=== PATIENT | female | born 1960 | race Caucasian/White ===

== ENCOUNTER 2018-08-10 16:29 | Emergency (ER) | payer OTHER ==
[~2018-08-10] VITALS: Ht 167.6 cm; Wt 86.7 kg
[~2018-08-10 16:29] MED LIST: CEPH-368 PO; FERR325T18 PO; LEVO150T PO; LEVO150T5 PO; LISINOPRIL-HCTZ PO; METH750T2 PO; OMEP-110 PO; OXYC-302 PO; PANT40TA3 PO; SUCR1TAB PO; TRAM-47 PO
[2018-08-10 16:31] VITALS: BP 173/81
== END 2018-08-10 17:31 | disposition home or self-care (01) ==
LOC: ED 17:05
DX: S63.501A Unspecified sprain of right wrist, initial encounter (principal); S60.221A Contusion of right hand, initial encounter; F17.200 Nicotine dependence, unspecified, uncomplicated; I10 Essential (primary) hypertension; Y08.89XA Assault by other specified means, initial encounter; Y93.89 Activity, other specified; Y92.89 Other specified places as the place of occurrence of the external cause; Y99.8 Other external cause status
CPT/HCPCS: 29260; 99284

== ENCOUNTER → 2018-08-15 | Outpatient (CLI) | payer OTHER | END | disposition home or self-care (01) | LOC: CFH 12:15 | PROVIDERS: ATTEND Family Medicine | DX: Z12.31 Encounter for screening mammogram for malignant neoplasm of breast (principal) | CPT/HCPCS: 77067 ==

== ENCOUNTER 2019-10-13 14:53 | Inpatient (IN) | payer OTHER ==
[~2019-10-13] VITALS: Ht 165.1 cm; Wt 91.7 kg
--- NOTE | 2019-10-13 15:05 | NUR ---
TASK RN: PT TO ROOM AT THIS TIME.
--- NOTE | 2019-10-13 15:09 | NUR ---
59 Y/O FEMALE PRESENTS TO ED WITH C/O ABD PAIN. PER PATIENT "I'VE HAD ABDOMINAL PAIN FOR 2 MONTHS. I FOLLOWED UP WITH MY PCP AND MY GI DR LAST TUESDAY. I HAVEN'T HAD A BM IN 8 DAYS. I HAVEN'T BEEN TAKING A STOOL SOFTENER OR LAXATIVE EVERY DAY. MY STOMACH IS BLOATING. THEY TOLD ME I NEED A SCAN FOR MY GALL BLADDER." PT PLACED ON CONT PULSE OX,NIBP. BROTHER BEDSIDE. NO C/O N/V/D, TRAUMA, SYNCOPE, CP
--- NOTE | 2019-10-13 15:15 | NUR ---
TASK RN: EDMD BEDSIDE.
[2019-10-13] MEDS ORDERED: SODIUM CHLORIDE 0.9% 1,000 ML IV ONE ×2 (15:18→19:00)
--- NOTE | 2019-10-13 15:22 | NUR ---
REPORT RECEIVED BREAK RN.
[2019-10-13] MEDS ORDERED: SODIUM CHLORIDE FLUSH 10ML SYR IVF ONE (15:30)
[2019-10-13] MEDS ORDERED: ONDANSETRON 2MG/ML, 2ML IVPush ONE (15:30)
[2019-10-13] MEDS ORDERED: MORPHINE SULFATE 4 MG/ML, 1ML IVPush PRN ×2 (15:30→20:00)
[2019-10-13 15:43] LABS: BASOPHILS # (AUTO) 0.09 x10^3/uL (0-0.1); BASOPHILS % (AUTO) 1 % (0-1); EOSINOPHILS # (AUTO) 0.13 x10^3/uL (0-0.4); EOSINOPHILS % (AUTO) 2 % (1-7); LYMPHOCYTES # (AUTO) 0.72 x10^3/uL (1-3.4); LYMPHOCYTES % (AUTO) 9 % (22-44); MD NO; MEAN CORPUSCULAR HEMOGLOBIN 25.8 pg (27.0-34.8); MEAN CORPUSCULAR HGB CONC 31.5 g/dL (32.4-35.8); MEAN CORPUSCULAR VOLUME 81.9 fL (80-100); MEAN PLATELET VOLUME 9.8 fL (7.4-10.4); MONOCYTES # (AUTO) 0.56 x10^3/uL (0.2-0.8); MONOCYTES % (AUTO) 7 % (2-9); NEUTROPHILS # (AUTO) 6.27 x10^3/uL (1.8-6.8); NEUTROPHILS % (AUTO) 81 % (42-75); PLATELET COUNT 412 x10^3/uL (130-400); RED BLOOD COUNT 4.52 x10^6/uL (3.82-5.3); RED CELL DISTRIBUTION WIDTH 15.4 % (9.6-15.2)
[2019-10-13 15:50] LABS: ALBUMIN 3.5 g/dL (3.4-5.0); ANION GAP 10 mmol/L (5-15); CALCIUM 9.1 mg/dL (8.5-10.1); CHLORIDE 103 mmol/L (98-107)
[2019-10-13 15:56] LABS: ALANINE AMINOTRANSFERASE 187 U/L (12-78); ALKALINE PHOSPHATASE 270 U/L (45-117); BILIRUBIN,TOTAL 1.1 mg/dL (0.2-1.0); CREATININE 0.96 mg/dL (0.55-1.02); TOTAL PROTEIN 7.7 g/dL (6.4-8.2)
--- NOTE | 2019-10-13 16:59 | NUR ---
PT TO AND FROM CTA.
--- NOTE | 2019-10-13 17:00 | NUR ---
PT STS PAIN IS GONE AND DID NOT WANT MS/ZOFRAN.
--- NOTE | 2019-10-13 17:29 | NUR ---
PLAN FOR XR, PT UPDATED. PT DECLINED PAIN MEDS, 5/10 PAIN.
--- NOTE | 2019-10-13 17:30 | NUR ---
PLAN FOR US.
[2019-10-13] MEDS ORDERED: ONDANSETRON 2MG/ML, 2ML ONE ×2 (18:30→19:20)
[2019-10-13] MEDS ORDERED: MORPHINE SULFATE 4 MG/ML, 1ML ONE (18:30)
--- NOTE | 2019-10-13 18:42 | NUR ---
MEDS PER MAR FOR PAIN AFTER US. AWAIITNG RESULTS. CALL RIVERA IN REACH VSS.
[2019-10-13] MEDS ORDERED: CEFOTETAN PMX 1GM/50ML 50 ML IV ONE (19:00)
[2019-10-13] MEDS ORDERED: FENTANYL PF 250 MCG/5ML ONE ×2 (19:16→20:50)
[2019-10-13] MEDS ORDERED: MIDAZOLAM 1 MG/ML, 2ML ONE (19:16)
[2019-10-13] MEDS ORDERED: CEFOTETAN PMX 2GM/50ML 50 ML ONE (19:18)
[2019-10-13] MEDS ORDERED: PROPOFOL 10 MG/ML, 20ML ONE (19:20)
[2019-10-13] MEDS ORDERED: NEOSTIGMINE 1 MG/ML, 10ML ONE ×2 (19:20→20:08)
[2019-10-13] MEDS ORDERED: ROCURONIUM 10MG/ML,5ML ONE (19:20)
[2019-10-13] MEDS ORDERED: GLYCOPYRROLATE 0.2MG/1ML, 5ML ONE (19:20)
[2019-10-13] MEDS ORDERED: DEXAMETHASONE 4 MG/ML, 1ML ONE (19:20)
[2019-10-13 19:37] LABS: INTERNATIONAL NORMALIZED RATIO 0.91 (0.93-1.1); PROTHROMBIN TIME 9.6 Seconds (9.6-11.5)
[2019-10-13] MEDS ORDERED: BUPIVACAINE/PF 0.5% ONE (19:39)
[2019-10-13] MEDS ORDERED: hydrALAzine 20 MG/ML, 1ML IV PRN ×2 (20:00→23:30)
[2019-10-13] MEDS ORDERED: OXYcodone 5 MG/5 ML ORAL.SOL UDC PO PRN (20:00)
[2019-10-13] MEDS ORDERED: MEPERIDINE/PF 25MG/ML,1ML IVPush PRN (20:00)
[2019-10-13] MEDS ORDERED: HALOPERIDOL 5 MG/ML IV PRN (20:00)
[2019-10-13] MEDS ORDERED: HYDROmorphone 2 MG/ML, 1ML IVPush PRN (20:00)
[2019-10-13] MEDS ORDERED: PROMETHAZINE 25 MG/ML, 1ML IV PRN (20:00)
[2019-10-13] MEDS ORDERED: LABETALOL 5MG/ML, 20ML IV PRN (20:00)
[2019-10-13] MEDS ORDERED: PHENYLEPHRINE 10 MG/ML ONE (20:08)
[2019-10-13] MEDS ORDERED: THROMBIN 5,000 UNIT VIAL TP ONE (21:10)
[2019-10-13] MEDS ORDERED: SUGAMMADEX 200 MG/2 ML IVPush ONE (21:37)
[2019-10-13] MEDS ORDERED: FENTANYL PF 100 MCG/2ML ONE (22:05)
[2019-10-13] MEDS ORDERED: OXYcodone 5 MG/5 ML ORAL.SOL UDC ONE (22:05)
[2019-10-13] MEDS: FENTANYL PF 100 MCG/2ML IV PRN ×3 (22:06→22:21)
[2019-10-13 23:00] VITALS: BP 116/75
[2019-10-13] MEDS: HYDROmorphone 2 MG/ML, 1ML IVPush PRN (23:28)
[2019-10-13] MEDS ORDERED: ACETAMINOPHEN 325 MG TABLET PO PRN (23:30)
[2019-10-13] MEDS ORDERED: ACETAMINOPHEN 650 MG SUPP PR PRN (23:30)
[2019-10-13] MEDS ORDERED: ENALAPRILAT 1.25 MG/ML, 2ML IV PRN (23:30)
[2019-10-13] MEDS ORDERED: DIPHENHYDRAMINE 50 MG/ML, 1ML IV PRN (23:30)
[2019-10-13] MEDS: LABETALOL 5MG/ML, 20ML IVPush SCH (23:30)
[2019-10-13] MEDS ORDERED: ONDANSETRON 2MG/ML, 2ML IV PRN (23:30)
[2019-10-14] VITALS (7 sets, daily range): BP systolic 87–116; BP diastolic 53–75
[2019-10-14] MEDS: OXYcodone/APAP 5/325MG TABLET PO PRN ×5 (02:27→20:11)
[2019-10-14] MEDS: HYDROmorphone 2 MG/ML, 1ML IVPush PRN ×3 (04:48→21:17)
[2019-10-14 04:58] LABS: MEAN CORPUSCULAR HEMOGLOBIN 25.9 pg (27.0-34.8); MEAN CORPUSCULAR HGB CONC 31.6 g/dL (32.4-35.8); MEAN CORPUSCULAR VOLUME 81.9 fL (80-100); MEAN PLATELET VOLUME 10.3 fL (7.4-10.4); PLATELET COUNT 405 x10^3/uL (130-400); RED BLOOD COUNT 4.11 x10^6/uL (3.82-5.3); RED CELL DISTRIBUTION WIDTH 15.5 % (9.6-15.2)
[2019-10-14] MEDS: OMEPRAZOLE 20 MG CAPSULE.DR PO SCH (05:00)
[2019-10-14] MEDS: LEVOTHYROXINE 150 MCG TABLET PO SCH (05:00)
[2019-10-14] MEDS: D5%-0.45NACL+KCL 20MEQ 1,000 ML IV SCH ×2 (05:00→21:17)
[2019-10-14 05:04] LABS: ALANINE AMINOTRANSFERASE 260 U/L (12-78); ALBUMIN 2.9 g/dL (3.4-5.0); ANION GAP 7 mmol/L (5-15); CHLORIDE 107 mmol/L (98-107)
[2019-10-14 05:06] LABS: ALKALINE PHOSPHATASE 269 U/L (45-117); BILIRUBIN,TOTAL 0.7 mg/dL (0.2-1.0); CREATININE 1.11 mg/dL (0.55-1.02); TOTAL PROTEIN 6.7 g/dL (6.4-8.2)
[2019-10-14 05:49] LABS: BASOPHILS % (AUTO) 0 % (0-1); EOSINOPHILS # (AUTO) 0.17 x10^3/uL (0-0.4); EOSINOPHILS % (AUTO) 1 % (1-7); LYMPHOCYTES # (AUTO) 0.27 x10^3/uL (1-3.4); LYMPHOCYTES % (AUTO) 2 % (22-44); MD SCAN; MONOCYTES # (AUTO) 1.03 x10^3/uL (0.2-0.8); MONOCYTES % (AUTO) 6 % (2-9); NEUTROPHILS # (AUTO) 15.85 x10^3/uL (1.8-6.8); NEUTROPHILS % (AUTO) 92 % (42-75)
[2019-10-14] MEDS: LABETALOL 5MG/ML, 20ML IVPush SCH ×3 (07:30→23:30)
[2019-10-14] MEDS: SUCRALFATE 1 GM TABLET PO SCH (08:33)
[2019-10-14] MEDS: ENOXAPARIN 40 MG/0.4 ML SQ SCH (12:16)
[2019-10-15] MEDS: OXYcodone/APAP 5/325MG TABLET PO PRN ×4 (00:46→17:25)
[2019-10-15] MEDS: LORazepam 1MG TABLET PO PRN (01:55)
[2019-10-15 01:58] VITALS: BP 97/52
[2019-10-15] MEDS: OMEPRAZOLE 20 MG CAPSULE.DR PO SCH (06:24)
[2019-10-15] MEDS: LEVOTHYROXINE 150 MCG TABLET PO SCH (06:24)
[2019-10-15 06:35] LABS: BASOPHILS # (AUTO) 0.13 x10^3/uL (0-0.1); BASOPHILS % (AUTO) 1 % (0-1); EOSINOPHILS # (AUTO) 0.05 x10^3/uL (0-0.4); EOSINOPHILS % (AUTO) 0 % (1-7); LYMPHOCYTES # (AUTO) 0.55 x10^3/uL (1-3.4); LYMPHOCYTES % (AUTO) 5 % (22-44); MD NO; MEAN CORPUSCULAR HGB CONC 31.5 g/dL (32.4-35.8); MEAN CORPUSCULAR VOLUME 82.6 fL (80-100); MEAN PLATELET VOLUME 10.6 fL (7.4-10.4); MONOCYTES # (AUTO) 1.27 x10^3/uL (0.2-0.8); MONOCYTES % (AUTO) 10 % (2-9); NEUTROPHILS # (AUTO) 10.21 x10^3/uL (1.8-6.8); NEUTROPHILS % (AUTO) 84 % (42-75); PLATELET COUNT 349 x10^3/uL (130-400); RED BLOOD COUNT 3.66 x10^6/uL (3.82-5.3); RED CELL DISTRIBUTION WIDTH 15.6 % (9.6-15.2)
[2019-10-15 06:44] LABS: ALANINE AMINOTRANSFERASE 165 U/L (12-78); ALBUMIN 2.8 g/dL (3.4-5.0); ANION GAP 7 mmol/L (5-15); CALCIUM 8.6 mg/dL (8.5-10.1); CHLORIDE 103 mmol/L (98-107); CREATININE 0.93 mg/dL (0.55-1.02)
[2019-10-15 06:47] LABS: ALKALINE PHOSPHATASE 197 U/L (45-117); BILIRUBIN,TOTAL 0.5 mg/dL (0.2-1.0); TOTAL PROTEIN 6.8 g/dL (6.4-8.2)
[2019-10-15 07:20] VITALS: BP 84/53
[2019-10-15 07:31] VITALS: BP 97/50
[2019-10-15] MEDS: LABETALOL 5MG/ML, 20ML IVPush SCH ×3 (07:38→23:30)
[2019-10-15] MEDS: SUCRALFATE 1 GM TABLET PO SCH (07:38)
[2019-10-15] MEDS: D5%-0.45NACL+KCL 20MEQ 1,000 ML IV SCH ×2 (07:45→19:46)
[2019-10-15] MEDS ORDERED: HOLD MEDICATION MC PRN (09:00)
[2019-10-15 13:11] VITALS: BP 89/56
[2019-10-15 16:12] VITALS: BP 95/55
[2019-10-15] MEDS: HYDROmorphone 2 MG/ML, 1ML IVPush PRN (18:40)
[2019-10-15 20:09] VITALS: BP 94/56
[2019-10-16] MEDS: HYDROmorphone 2 MG/ML, 1ML IVPush PRN ×2 (00:33→19:31)
[2019-10-16] MEDS: LORazepam 1MG TABLET PO PRN ×2 (00:40→08:40)
[2019-10-16 02:00] VITALS: BP 98/53
[2019-10-16] MEDS: OXYcodone/APAP 5/325MG TABLET PO PRN ×3 (04:23→16:11)
[2019-10-16] MEDS: LEVOTHYROXINE 150 MCG TABLET PO SCH (06:04)
[2019-10-16] MEDS: OMEPRAZOLE 20 MG CAPSULE.DR PO SCH (06:04)
[2019-10-16] MEDS: D5%-0.45NACL+KCL 20MEQ 1,000 ML IV SCH ×2 (07:20→17:33)
[2019-10-16] MEDS: LABETALOL 5MG/ML, 20ML IVPush SCH ×3 (07:30→23:30)
[2019-10-16 07:34] VITALS: BP 109/69
[2019-10-16] MEDS: SUCRALFATE 1 GM TABLET PO SCH (08:40)
[2019-10-16 08:56] LABS: BASOPHILS # (AUTO) 0.15 x10^3/uL (0-0.1); BASOPHILS % (AUTO) 1 % (0-1); EOSINOPHILS # (AUTO) 0.09 x10^3/uL (0-0.4); EOSINOPHILS % (AUTO) 1 % (1-7); LYMPHOCYTES # (AUTO) 0.78 x10^3/uL (1-3.4); LYMPHOCYTES % (AUTO) 6 % (22-44); MD NO; MEAN CORPUSCULAR HEMOGLOBIN 26.2 pg (27.0-34.8); MEAN CORPUSCULAR HGB CONC 31.9 g/dL (32.4-35.8); MONOCYTES # (AUTO) 0.96 x10^3/uL (0.2-0.8); MONOCYTES % (AUTO) 8 % (2-9); NEUTROPHILS # (AUTO) 10.83 x10^3/uL (1.8-6.8); NEUTROPHILS % (AUTO) 85 % (42-75); PLATELET COUNT 344 x10^3/uL (130-400); RED BLOOD COUNT 3.42 x10^6/uL (3.82-5.3)
[2019-10-16 09:06] LABS: ALANINE AMINOTRANSFERASE 96 U/L (12-78); ALBUMIN 2.5 g/dL (3.4-5.0); ANION GAP 7 mmol/L (5-15); CALCIUM 8.2 mg/dL (8.5-10.1); CHLORIDE 104 mmol/L (98-107); CREATININE 0.72 mg/dL (0.55-1.02)
[2019-10-16 09:08] LABS: ALKALINE PHOSPHATASE 162 U/L (45-117); BILIRUBIN,TOTAL 0.4 mg/dL (0.2-1.0); TOTAL PROTEIN 6.4 g/dL (6.4-8.2)
[2019-10-16] MEDS: ENOXAPARIN 40 MG/0.4 ML SQ SCH (12:23)
[2019-10-16 13:28] VITALS: BP 88/54
[2019-10-16] MEDS: DIPHENHYDRAMINE 25 MG CAPSULE PO PRN (16:11)
[2019-10-16 16:16] VITALS: BP 124/54
[2019-10-16 20:09] VITALS: BP 91/60
[2019-10-17] MEDS: OXYcodone/APAP 5/325MG TABLET PO PRN ×3 (01:45→12:40)
[2019-10-17 01:52] VITALS: BP 115/73
[2019-10-17] MEDS: D5%-0.45NACL+KCL 20MEQ 1,000 ML IV SCH ×2 (02:45→14:01)
[2019-10-17 05:45] LABS: BASOPHILS # (AUTO) 0.03 x10^3/uL (0-0.1); BASOPHILS % (AUTO) 0 % (0-1); EOSINOPHILS # (AUTO) 0.23 x10^3/uL (0-0.4); EOSINOPHILS % (AUTO) 2 % (1-7); LYMPHOCYTES # (AUTO) 0.79 x10^3/uL (1-3.4); LYMPHOCYTES % (AUTO) 7 % (22-44); MD NO; MEAN CORPUSCULAR HEMOGLOBIN 26.1 pg (27.0-34.8); MEAN CORPUSCULAR VOLUME 81.5 fL (80-100); MONOCYTES # (AUTO) 1.08 x10^3/uL (0.2-0.8); MONOCYTES % (AUTO) 10 % (2-9); NEUTROPHILS # (AUTO) 9.18 x10^3/uL (1.8-6.8); NEUTROPHILS % (AUTO) 81 % (42-75); PLATELET COUNT 343 x10^3/uL (130-400); RED BLOOD COUNT 3.03 x10^6/uL (3.82-5.3); RED CELL DISTRIBUTION WIDTH 15.6 % (9.6-15.2)
[2019-10-17 06:05] LABS: ALBUMIN 2.1 g/dL (3.4-5.0); ANION GAP 6 mmol/L (5-15); CALCIUM 7.8 mg/dL (8.5-10.1); CHLORIDE 105 mmol/L (98-107)
[2019-10-17 06:08] LABS: ALANINE AMINOTRANSFERASE 68 U/L (12-78); ALKALINE PHOSPHATASE 137 U/L (45-117); BILIRUBIN,TOTAL 0.3 mg/dL (0.2-1.0); TOTAL PROTEIN 5.7 g/dL (6.4-8.2)
[2019-10-17] MEDS: LEVOTHYROXINE 150 MCG TABLET PO SCH (06:35)
[2019-10-17] MEDS: OMEPRAZOLE 20 MG CAPSULE.DR PO SCH (06:35)
[2019-10-17 07:27] VITALS: BP 100/61
[2019-10-17] MEDS: SUCRALFATE 1 GM TABLET PO SCH (08:50)
[2019-10-17] MEDS: LABETALOL 5MG/ML, 20ML IVPush SCH ×3 (08:50→23:10)
[2019-10-17] MEDS ORDERED: OMNIPAQUE 350 MG/ML, 100ML BOTTLE ONE (10:29)
[2019-10-17] MEDS: ENOXAPARIN 40 MG/0.4 ML SQ SCH (12:00)
[2019-10-17 12:08] VITALS: BP 95/61
[2019-10-17] MEDS: LORazepam 2 MG/ML, 1ML IV PRN (14:01)
[2019-10-17 14:04] LABS: BASOPHILS % (AUTO) 0 % (0-1); EOSINOPHILS # (AUTO) 0.29 x10^3/uL (0-0.4); EOSINOPHILS % (AUTO) 2 % (1-7); LYMPHOCYTES # (AUTO) 0.88 x10^3/uL (1-3.4); LYMPHOCYTES % (AUTO) 7 % (22-44); MD NO; MEAN CORPUSCULAR HEMOGLOBIN 26.1 pg (27.0-34.8); MEAN CORPUSCULAR HGB CONC 32.2 g/dL (32.4-35.8); MEAN CORPUSCULAR VOLUME 81.2 fL (80-100); MEAN PLATELET VOLUME 10.1 fL (7.4-10.4); MONOCYTES # (AUTO) 1.23 x10^3/uL (0.2-0.8); MONOCYTES % (AUTO) 9 % (2-9); NEUTROPHILS # (AUTO) 11.08 x10^3/uL (1.8-6.8); NEUTROPHILS % (AUTO) 82 % (42-75); PLATELET COUNT 415 x10^3/uL (130-400); RED BLOOD COUNT 3.43 x10^6/uL (3.82-5.3); RED CELL DISTRIBUTION WIDTH 15.9 % (9.6-15.2)
[2019-10-17] MEDS: HYDROmorphone 2 MG/ML, 1ML IVPush PRN ×2 (16:21→22:25)
[2019-10-17 17:15] VITALS: BP 113/69
[2019-10-17 20:21] VITALS: BP 111/69
[2019-10-18] MEDS: D5%-0.45NACL+KCL 20MEQ 1,000 ML IV SCH ×2 (00:08→13:40)
[2019-10-18] MEDS: LORazepam 1MG TABLET PO PRN ×2 (00:08→20:55)
[2019-10-18] MEDS: LORazepam 2 MG/ML, 1ML IV PRN (00:10)
[2019-10-18 01:16] VITALS: BP 108/74
[2019-10-18] MEDS: LEVOTHYROXINE 150 MCG TABLET PO SCH (05:12)
[2019-10-18] MEDS: OMEPRAZOLE 20 MG CAPSULE.DR PO SCH (05:12)
[2019-10-18 06:02] LABS: BASOPHILS # (AUTO) 0.01 x10^3/uL (0-0.1); BASOPHILS % (AUTO) 0 % (0-1); EOSINOPHILS # (AUTO) 0.18 x10^3/uL (0-0.4); EOSINOPHILS % (AUTO) 2 % (1-7); LYMPHOCYTES # (AUTO) 0.82 x10^3/uL (1-3.4); LYMPHOCYTES % (AUTO) 7 % (22-44); MD NO; MEAN CORPUSCULAR HEMOGLOBIN 25.8 pg (27.0-34.8); MEAN CORPUSCULAR HGB CONC 31.8 g/dL (32.4-35.8); MEAN CORPUSCULAR VOLUME 81.3 fL (80-100); MEAN PLATELET VOLUME 9.8 fL (7.4-10.4); MONOCYTES # (AUTO) 1.32 x10^3/uL (0.2-0.8); MONOCYTES % (AUTO) 12 % (2-9); NEUTROPHILS # (AUTO) 8.95 x10^3/uL (1.8-6.8); NEUTROPHILS % (AUTO) 79 % (42-75); PLATELET COUNT 412 x10^3/uL (130-400); RED BLOOD COUNT 3.11 x10^6/uL (3.82-5.3)
[2019-10-18 06:11] LABS: ALANINE AMINOTRANSFERASE 53 U/L (12-78); ALBUMIN 2.1 g/dL (3.4-5.0); ANION GAP 7 mmol/L (5-15); CALCIUM 8.3 mg/dL (8.5-10.1); CHLORIDE 104 mmol/L (98-107); CREATININE 0.55 mg/dL (0.55-1.02)
[2019-10-18 06:13] LABS: ALKALINE PHOSPHATASE 136 U/L (45-117); BILIRUBIN,TOTAL 0.8 mg/dL (0.2-1.0); TOTAL PROTEIN 6.1 g/dL (6.4-8.2)
[2019-10-18 07:45] VITALS: BP 103/56
[2019-10-18] MEDS: LABETALOL 5MG/ML, 20ML IVPush SCH ×3 (08:56→23:30)
[2019-10-18] MEDS: OXYcodone/APAP 5/325MG TABLET PO PRN ×3 (08:56→22:00)
[2019-10-18] MEDS: SUCRALFATE 1 GM TABLET PO SCH (08:56)
[2019-10-18] MEDS ORDERED: METHYLNALTREXONE 12 MG/0.6 ML SYR SQ ONE (11:00)
[2019-10-18 11:36] LABS: FREE T4 (FREE THYROXINE) 1.37 ng/dL (0.76-1.46)
[2019-10-18] MEDS: ENOXAPARIN 40 MG/0.4 ML SQ SCH (12:00)
[2019-10-18] MEDS: HYDROmorphone 2 MG/ML, 1ML IVPush PRN (13:39)
[2019-10-18] MEDS ORDERED: HOLD MEDICATION MC PRN (14:30)
[2019-10-18 15:23] VITALS: BP 98/59
[2019-10-18 20:36] VITALS: BP 95/58
[2019-10-19 01:55] VITALS: BP 92/57
[2019-10-19] MEDS: LEVOTHYROXINE 150 MCG TABLET PO SCH (05:32)
[2019-10-19] MEDS: OXYcodone/APAP 5/325MG TABLET PO PRN ×4 (05:32→22:53)
[2019-10-19] MEDS: OMEPRAZOLE 20 MG CAPSULE.DR PO SCH (05:32)
[2019-10-19 05:48] LABS: ALANINE AMINOTRANSFERASE 44 U/L (12-78); ALBUMIN 1.9 g/dL (3.4-5.0); ANION GAP 5 mmol/L (5-15); CALCIUM 8.5 mg/dL (8.5-10.1); CHLORIDE 107 mmol/L (98-107); CREATININE 0.55 mg/dL (0.55-1.02)
[2019-10-19 05:50] LABS: ALKALINE PHOSPHATASE 130 U/L (45-117); BILIRUBIN,TOTAL 0.8 mg/dL (0.2-1.0); TOTAL PROTEIN 6.2 g/dL (6.4-8.2)
[2019-10-19 06:10] LABS: MEAN CORPUSCULAR HEMOGLOBIN 25.3 pg (27.0-34.8); MEAN CORPUSCULAR HGB CONC 31.1 g/dL (32.4-35.8); MEAN CORPUSCULAR VOLUME 81.2 fL (80-100); MEAN PLATELET VOLUME 9.6 fL (7.4-10.4); PLATELET COUNT 417 x10^3/uL (130-400); RED BLOOD COUNT 3.18 x10^6/uL (3.82-5.3); RED CELL DISTRIBUTION WIDTH 16.1 % (9.6-15.2)
[2019-10-19 06:13] LABS: BASOPHILS # (AUTO) 0.01 x10^3/uL (0-0.1); BASOPHILS % (AUTO) 0 % (0-1); EOSINOPHILS % (AUTO) 3 % (1-7); LYMPHOCYTES # (AUTO) 0.88 x10^3/uL (1-3.4); LYMPHOCYTES % (AUTO) 8 % (22-44); MD MORPH REVIEW ONLY; MONOCYTES # (AUTO) 0.85 x10^3/uL (0.2-0.8); MONOCYTES % (AUTO) 8 % (2-9); NEUTROPHILS # (AUTO) 8.44 x10^3/uL (1.8-6.8); NEUTROPHILS % (AUTO) 81 % (42-75)
[2019-10-19 06:14] LABS: <PLATELET ESTIMATE> INCREASED; ANISOCYTOSIS 1+; GIANT PLATELETS 1+; HYPOCHROMIA 1+; LARGE PLATELETS 1+; MICROCYTOSIS 1+
[2019-10-19] MEDS: LABETALOL 5MG/ML, 20ML IVPush SCH ×3 (07:30→23:30)
[2019-10-19] MEDS: SUCRALFATE 1 GM TABLET PO SCH (08:24)
[2019-10-19 08:25] VITALS: BP 95/62
[2019-10-19] MEDS ORDERED: ALBUTEROL/IPRATROPIUM 2.5MG/0.5MG, 3 ML HHN SCH (10:30)
[2019-10-19 12:23] VITALS: BP 105/68
[2019-10-19] MEDS: HYDROmorphone 2 MG/ML, 1ML IVPush PRN ×2 (12:58→13:15)
[2019-10-19] MEDS: ENOXAPARIN 40 MG/0.4 ML SQ SCH (13:00)
[2019-10-19] MEDS: SENNA/DOCUSATE TABLET PO SCH (15:16)
[2019-10-19] MEDS: LACTULOSE 20 GM/30 ML UDC PO SCH ×2 (15:16→20:58)
[2019-10-19 20:42] VITALS: BP 105/64
[2019-10-19] MEDS: LORazepam 1MG TABLET PO PRN (20:58)
[2019-10-19] MEDS: D5%-0.45NACL+KCL 20MEQ 1,000 ML IV SCH (23:21)
[2019-10-19] MEDS: DIPHENHYDRAMINE 25 MG CAPSULE PO PRN (23:29)
[2019-10-19 23:32] VITALS: BP 121/72
[2019-10-20 03:05] VITALS: BP 99/62
[2019-10-20] MEDS: OMEPRAZOLE 20 MG CAPSULE.DR PO SCH (06:09)
[2019-10-20] MEDS: OXYcodone/APAP 5/325MG TABLET PO PRN ×4 (06:09→23:57)
[2019-10-20] MEDS: LEVOTHYROXINE 150 MCG TABLET PO SCH (06:10)
[2019-10-20] MEDS: LABETALOL 5MG/ML, 20ML IVPush SCH ×3 (07:30→22:38)
[2019-10-20] MEDS: SENNA/DOCUSATE TABLET PO SCH (08:31)
[2019-10-20] MEDS: SUCRALFATE 1 GM TABLET PO SCH (08:31)
[2019-10-20] MEDS: LACTULOSE 20 GM/30 ML UDC PO SCH ×2 (08:31→21:00)
[2019-10-20 08:43] VITALS: BP 108/71
[2019-10-20 08:49] LABS: BASOPHILS # (AUTO) 0.05 x10^3/uL (0-0.1); BASOPHILS % (AUTO) 1 % (0-1); EOSINOPHILS % (AUTO) 2 % (1-7); LYMPHOCYTES # (AUTO) 0.64 x10^3/uL (1-3.4); LYMPHOCYTES % (AUTO) 6 % (22-44); MD NO; MEAN CORPUSCULAR HEMOGLOBIN 25.4 pg (27.0-34.8); MEAN CORPUSCULAR HGB CONC 31.6 g/dL (32.4-35.8); MEAN CORPUSCULAR VOLUME 80.4 fL (80-100); MEAN PLATELET VOLUME 9.1 fL (7.4-10.4); MONOCYTES # (AUTO) 1.22 x10^3/uL (0.2-0.8); MONOCYTES % (AUTO) 11 % (2-9); NEUTROPHILS # (AUTO) 9.43 x10^3/uL (1.8-6.8); NEUTROPHILS % (AUTO) 82 % (42-75); PLATELET COUNT 573 x10^3/uL (130-400); RED BLOOD COUNT 3.15 x10^6/uL (3.82-5.3); RED CELL DISTRIBUTION WIDTH 16.3 % (9.6-15.2)
[2019-10-20 08:58] LABS: ANION GAP 7 mmol/L (5-15); CALCIUM 8.1 mg/dL (8.5-10.1); CHLORIDE 105 mmol/L (98-107); CREATININE 0.61 mg/dL (0.55-1.02)
[2019-10-20] MEDS: CEFTRIAXONE PMX 1GM/50ML 50 ML IV SCH (09:23)
[2019-10-20] MEDS: METRONIDAZOLE PMX 500MG/100ML 100 ML IV SCH ×2 (10:12→17:48)
[2019-10-20] MEDS: ENOXAPARIN 40 MG/0.4 ML SQ SCH (12:46)
[2019-10-20] MEDS: LORazepam 1MG TABLET PO PRN ×2 (12:48→21:13)
[2019-10-20 13:01] VITALS: BP 104/66
[2019-10-20 18:33] VITALS: BP 106/54
[2019-10-20] MEDS: D5%-0.45NACL+KCL 20MEQ 1,000 ML IV SCH (21:30)
[2019-10-21 01:27] VITALS: BP 115/68
[2019-10-21] MEDS: METRONIDAZOLE PMX 500MG/100ML 100 ML IV SCH ×3 (01:28→18:11)
[2019-10-21] MEDS: OMEPRAZOLE 20 MG CAPSULE.DR PO SCH (05:23)
[2019-10-21] MEDS: LEVOTHYROXINE 150 MCG TABLET PO SCH (05:23)
[2019-10-21] MEDS: LABETALOL 5MG/ML, 20ML IVPush SCH ×3 (07:30→23:30)
[2019-10-21 07:36] VITALS: BP 106/66
[2019-10-21] MEDS: LACTULOSE 20 GM/30 ML UDC PO SCH ×2 (09:00→20:27)
[2019-10-21] MEDS: SENNA/DOCUSATE TABLET PO SCH (09:00)
[2019-10-21] MEDS: CEFTRIAXONE PMX 1GM/50ML 50 ML IV SCH (09:11)
[2019-10-21] MEDS: SUCRALFATE 1 GM TABLET PO SCH (09:11)
[2019-10-21] MEDS: OXYcodone/APAP 5/325MG TABLET PO PRN ×2 (09:19→17:29)
[2019-10-21 10:32] LABS: MEAN CORPUSCULAR HEMOGLOBIN 25.9 pg (27.0-34.8); MEAN CORPUSCULAR HGB CONC 32.5 g/dL (32.4-35.8); MEAN CORPUSCULAR VOLUME 79.6 fL (80-100); MEAN PLATELET VOLUME 8.5 fL (7.4-10.4); PLATELET COUNT 672 x10^3/uL (130-400); RED BLOOD COUNT 3.17 x10^6/uL (3.82-5.3); RED CELL DISTRIBUTION WIDTH 16.5 % (9.6-15.2)
[2019-10-21 10:45] LABS: ALANINE AMINOTRANSFERASE 22 U/L (12-78); ANION GAP 6 mmol/L (5-15); CALCIUM 7.9 mg/dL (8.5-10.1); CHLORIDE 106 mmol/L (98-107); CREATININE 0.48 mg/dL (0.55-1.02)
[2019-10-21 10:47] LABS: ALKALINE PHOSPHATASE 137 U/L (45-117); BILIRUBIN,TOTAL 0.2 mg/dL (0.2-1.0); TOTAL PROTEIN 6.2 g/dL (6.4-8.2)
[2019-10-21 10:50] LABS: BASOPHILS # (AUTO) 0.03 x10^3/uL (0-0.1); BASOPHILS % (AUTO) 0 % (0-1); EOSINOPHILS # (AUTO) 0.16 x10^3/uL (0-0.4); EOSINOPHILS % (AUTO) 1 % (1-7); LYMPHOCYTES # (AUTO) 0.81 x10^3/uL (1-3.4); LYMPHOCYTES % (AUTO) 7 % (22-44); MD SCAN; MONOCYTES % (AUTO) 8 % (2-9); NEUTROPHILS # (AUTO) 9.55 x10^3/uL (1.8-6.8); NEUTROPHILS % (AUTO) 83 % (42-75)
[2019-10-21] MEDS ORDERED: POTASSIUM CHLORIDE 20 MEQ TAB.ER.PRT PO ONE (12:00)
[2019-10-21] MEDS: ENOXAPARIN 40 MG/0.4 ML SQ SCH (13:07)
[2019-10-21 13:33] VITALS: BP 96/61
[2019-10-21 16:04] VITALS: BP 106/65
[2019-10-21] MEDS: LORazepam 2 MG/ML, 1ML IV PRN (18:11)
[2019-10-21 19:58] VITALS: BP 104/64
[2019-10-21] MEDS: D5%-0.45NACL+KCL 20MEQ 1,000 ML IV SCH (21:59)
[2019-10-22] MEDS: METRONIDAZOLE PMX 500MG/100ML 100 ML IV SCH ×3 (01:39→18:18)
[2019-10-22] MEDS: OXYcodone/APAP 5/325MG TABLET PO PRN ×4 (01:39→23:12)
[2019-10-22] MEDS: LORazepam 2 MG/ML, 1ML IV PRN (01:39)
[2019-10-22 01:45] VITALS: BP 106/69
[2019-10-22] MEDS: OMEPRAZOLE 20 MG CAPSULE.DR PO SCH (05:28)
[2019-10-22] MEDS: LEVOTHYROXINE 150 MCG TABLET PO SCH (05:29)
[2019-10-22 06:55] VITALS: BP 102/65
[2019-10-22] MEDS: LABETALOL 5MG/ML, 20ML IVPush SCH ×3 (07:30→23:30)
[2019-10-22 08:16] LABS: ANION GAP 5 mmol/L (5-15); CALCIUM 8.1 mg/dL (8.5-10.1); CHLORIDE 110 mmol/L (98-107); CREATININE 0.42 mg/dL (0.55-1.02)
[2019-10-22] MEDS: SUCRALFATE 1 GM TABLET PO SCH (08:52)
[2019-10-22] MEDS: LACTULOSE 20 GM/30 ML UDC PO SCH ×2 (08:52→23:12)
[2019-10-22] MEDS: CEFTRIAXONE PMX 1GM/50ML 50 ML IV SCH (08:53)
[2019-10-22] MEDS: SENNA/DOCUSATE TABLET PO SCH (08:54)
[2019-10-22] MEDS: HYDROmorphone 2 MG/ML, 1ML IVPush PRN (09:14)
[2019-10-22] MEDS: ENOXAPARIN 40 MG/0.4 ML SQ SCH (14:16)
[2019-10-22 16:20] VITALS: BP 119/73
[2019-10-22 20:31] VITALS: BP 101/62
[2019-10-22] MEDS: LORazepam 1MG TABLET PO PRN (23:12)
[2019-10-22] MEDS: D5%-0.45NACL+KCL 20MEQ 1,000 ML IV SCH (23:30)
[2019-10-23 01:45] VITALS: BP 120/73
[2019-10-23] MEDS: METRONIDAZOLE PMX 500MG/100ML 100 ML IV SCH ×3 (02:29→23:10)
[2019-10-23] MEDS: D5%-0.45NACL+KCL 20MEQ 1,000 ML IV SCH (03:00)
[2019-10-23] MEDS: OMEPRAZOLE 20 MG CAPSULE.DR PO SCH (06:00)
[2019-10-23] MEDS: LEVOTHYROXINE 150 MCG TABLET PO SCH (06:00)
[2019-10-23 06:45] VITALS: BP 110/69
[2019-10-23] MEDS: LABETALOL 5MG/ML, 20ML IVPush SCH ×3 (07:30→23:12)
[2019-10-23] MEDS: SUCRALFATE 1 GM TABLET PO SCH (09:00)
[2019-10-23] MEDS: CEFTRIAXONE PMX 1GM/50ML 50 ML IV SCH (09:20)
[2019-10-23] MEDS: HYDROmorphone 2 MG/ML, 1ML IVPush PRN (09:20)
[2019-10-23] MEDS ORDERED: HYDROmorphone 2 MG/ML, 1ML IVPush PRN (13:00)
[2019-10-23] MEDS ORDERED: FENTANYL PF 100 MCG/2ML IV PRN (13:00)
[2019-10-23] MEDS ORDERED: OXYcodone 5 MG/5 ML ORAL.SOL UDC PO PRN (13:00)
[2019-10-23] MEDS ORDERED: LORazepam 2 MG/ML, 1ML IVPush PRN (13:00)
[2019-10-23] MEDS ORDERED: ONDANSETRON 2MG/ML, 2ML IV PRN (13:00)
[2019-10-23] MEDS ORDERED: ALBUTEROL SULFATE 2.5 MG/3 ML NPPB PRN (13:30)
[2019-10-23 14:16] VITALS: BP 102/53
[2019-10-23] MEDS: OXYcodone/APAP 5/325MG TABLET PO PRN ×2 (16:03→21:14)
[2019-10-23] MEDS ORDERED: SUCCINYLCHOLINE 20 MG/ML, 10ML ONE (16:16)
[2019-10-23 18:32] VITALS: BP 100/63
[2019-10-24 02:21] VITALS: BP 95/63
[2019-10-24] MEDS: OXYcodone/APAP 5/325MG TABLET PO PRN ×2 (04:01→12:27)
[2019-10-24] MEDS: D5%-0.45NACL+KCL 20MEQ 1,000 ML IV SCH (04:16)
[2019-10-24] MEDS: LEVOTHYROXINE 150 MCG TABLET PO SCH (05:46)
[2019-10-24] MEDS: OMEPRAZOLE 20 MG CAPSULE.DR PO SCH (05:46)
[2019-10-24 06:18] LABS: BASOPHILS # (AUTO) 0.05 x10^3/uL (0-0.1); BASOPHILS % (AUTO) 0 % (0-1); EOSINOPHILS # (AUTO) 0.18 x10^3/uL (0-0.4); EOSINOPHILS % (AUTO) 2 % (1-7); LYMPHOCYTES # (AUTO) 0.75 x10^3/uL (1-3.4); LYMPHOCYTES % (AUTO) 6 % (22-44); MD NO; MEAN CORPUSCULAR HEMOGLOBIN 25.3 pg (27.0-34.8); MEAN CORPUSCULAR HGB CONC 31.4 g/dL (32.4-35.8); MEAN CORPUSCULAR VOLUME 80.5 fL (80-100); MEAN PLATELET VOLUME 8.4 fL (7.4-10.4); MONOCYTES % (AUTO) 8 % (2-9); NEUTROPHILS # (AUTO) 10.17 x10^3/uL (1.8-6.8); NEUTROPHILS % (AUTO) 84 % (42-75); PLATELET COUNT 720 x10^3/uL (130-400); RED BLOOD COUNT 3.12 x10^6/uL (3.82-5.3); RED CELL DISTRIBUTION WIDTH 16.7 % (9.6-15.2)
[2019-10-24 06:35] LABS: ALANINE AMINOTRANSFERASE 16 U/L (12-78); CHLORIDE 110 mmol/L (98-107)
[2019-10-24 06:39] LABS: ALBUMIN 1.8 g/dL (3.4-5.0); ALKALINE PHOSPHATASE 104 U/L (45-117); ANION GAP 7 mmol/L (5-15); BILIRUBIN,TOTAL 0.4 mg/dL (0.2-1.0); CREATININE 0.36 mg/dL (0.55-1.02); TOTAL PROTEIN 5.6 g/dL (6.4-8.2)
[2019-10-24 06:46] VITALS: BP 97/58
[2019-10-24] MEDS ORDERED: POTASSIUM CHLORIDE 10 MEQ TABLET.ER PO ONE (07:00)
[2019-10-24] MEDS: LABETALOL 5MG/ML, 20ML IVPush SCH ×2 (07:30→15:30)
[2019-10-24] MEDS: METRONIDAZOLE PMX 500MG/100ML 100 ML IV SCH ×2 (07:45→15:00)
[2019-10-24] MEDS: SUCRALFATE 1 GM TABLET PO SCH (08:54)
[2019-10-24] MEDS: CEFTRIAXONE PMX 1GM/50ML 50 ML IV SCH (08:54)
[2019-10-24 12:56] VITALS: BP 93/61
[2019-10-24] MEDS: LORazepam 1MG TABLET PO PRN (13:12)
[2019-10-24] MEDS ORDERED: CIPR500T87 PO (13:59)
[2019-10-24] MEDS ORDERED: OXYcodone/APAP 5/325MG PO (13:59)
[2019-10-24] MEDS ORDERED: METR500T PO (13:59)
[2019-10-24] MEDS ORDERED: TIOT18CA INH (14:08)
[2019-10-24] MEDS ORDERED: FLUT1DIS3 INH (14:08)
[2019-10-24 16:24] VITALS: BP 111/67
[2019-10-26] MEDS ORDERED: SIMV20TA19 PO (11:02)
[2019-10-26] MEDS ORDERED: FENO48TA10 PO (11:02)
== END 2019-10-24 16:45 | disposition home or self-care (01) | DRG 414 ==
LOC: ED 15:46 → EDIP 19:05 → 4NE 23:05
PROVIDERS: ADMIT Emergency Medicine; ATTEND Hospitalist
PROC: 0FJ44ZZ Inspection of Gallbladder, Percutaneous Endoscopic Approach (ICD-10-PCS; 2019-10-13)
PROC: 0FT40ZZ Resection of Gallbladder, Open Approach (ICD-10-PCS; principal; 2019-10-13 19:45)
PROC: 0F798DZ Dilation of Common Bile Duct with Intraluminal Device, Via Natural or Artificial Opening Endoscopic (ICD-10-PCS; 2019-10-23)
PROC: BF131ZZ Fluoroscopy of Gallbladder and Bile Ducts using Low Osmolar Contrast (ICD-10-PCS; 2019-10-23)
DX: K80.00 Calculus of gallbladder with acute cholecystitis without obstruction (principal); J96.00 Acute respiratory failure, unspecified whether with hypoxia or hypercapnia; K91.89 Other postprocedural complications and disorders of digestive system; E03.9 Hypothyroidism, unspecified; E78.5 Hyperlipidemia, unspecified; E87.6 Hypokalemia; F17.210 Nicotine dependence, cigarettes, uncomplicated; G89.18 Other acute postprocedural pain; I10 Essential (primary) hypertension; J43.9 Emphysema, unspecified; K57.10 Diverticulosis of small intestine without perforation or abscess without bleeding; Z53.31 Laparoscopic surgical procedure converted to open procedure; Z80.9 Family history of malignant neoplasm, unspecified; Z83.3 Family history of diabetes mellitus
CPT/HCPCS: 36415; 74420; 82247; 96361; 96374; 99285; S0020; 71045; 71260; 74174; 74177; 76700; 78226; 80048; 80053; 83605; 83690; 83735; 84439; 84443; 85025; 85610; 88304; 93005; 94640; G0378; J0696; J1100; J1170; J1650; J2250; J2405; J2704; J2710; J3010; Q9967; A9537; C1769; C1894; C2625; J0330; J2060; J2270; J2370; J3480; J3490; J7030; Q0163

== ENCOUNTER 2019-10-26 10:26 | Emergency (ER) | payer OTHER ==
[~2019-10-26] VITALS: Ht 170.2 cm; Wt 87.0 kg
[~2019-10-26 10:26] MED LIST changes: +CIPR500T87 PO; +FLUT1DIS3 INH; +METR500T PO; +OXYcodone/APAP 5/325MG PO; +TIOT18CA INH
--- NOTE | 2019-10-26 10:56 | NUR ---
PT HAD A EMERGENCY GALL BLADDER REMOVAL ON 10/13. HAS CHEO DRAIN AND WOUND VAC IN PLACE. PT STATES SHE EMPTIES CHEO DRAIN ONCE A DAY AND IT FILLS WITH "BROWN LIQUID". PT CO OF NEW SWELLING IN HER HANDS AND FEET WHICH STARTED LAST NIGHT. ALSO CO OF FEELING COLD ALL THE TIME. SURGICAL INCISION LOOKS CLEAN. PT IS CURRENTLY TAKING ABX. WARM BLANKETS PROVIDED WITH BLANKET WARMER. FAMILY IS BEDSIDE. CALL LIGHT WITHIN REACH
[2019-10-26] MEDS ORDERED: SIMV20TA3 PO (11:02)
[2019-10-26] MEDS ORDERED: FENO48TA17 PO (11:02)
[2019-10-26 11:59] LABS: BASOPHILS # (AUTO) 0.04 x10^3/uL (0-0.1); BASOPHILS % (AUTO) 0 % (0-1); EOSINOPHILS # (AUTO) 0.28 x10^3/uL (0-0.4); EOSINOPHILS % (AUTO) 2 % (1-7); LYMPHOCYTES # (AUTO) 0.84 x10^3/uL (1-3.4); LYMPHOCYTES % (AUTO) 6 % (22-44); MD NO; MEAN CORPUSCULAR HGB CONC 31.4 g/dL (32.4-35.8); MEAN CORPUSCULAR VOLUME 79.6 fL (80-100); MONOCYTES # (AUTO) 0.85 x10^3/uL (0.2-0.8); MONOCYTES % (AUTO) 6 % (2-9); NEUTROPHILS # (AUTO) 12.26 x10^3/uL (1.8-6.8); NEUTROPHILS % (AUTO) 86 % (42-75); PLATELET COUNT 951 x10^3/uL (130-400); RED BLOOD COUNT 3.64 x10^6/uL (3.82-5.3); RED CELL DISTRIBUTION WIDTH 16.8 % (9.6-15.2)
[2019-10-26 12:01] LABS: ALANINE AMINOTRANSFERASE 12 U/L (12-78); ALBUMIN 2.2 g/dL (3.4-5.0); ANION GAP 8 mmol/L (5-15); CALCIUM 8.2 mg/dL (8.5-10.1); CHLORIDE 110 mmol/L (98-107)
[2019-10-26 12:04] LABS: ALKALINE PHOSPHATASE 116 U/L (45-117); BILIRUBIN,TOTAL 0.4 mg/dL (0.2-1.0); CREATININE 0.58 mg/dL (0.55-1.02); TOTAL PROTEIN 6.4 g/dL (6.4-8.2)
--- NOTE | 2019-10-26 12:58 | NUR ---
PT IS RESTING IN HOSPITAL BED. AWAITING WOUND CARE TEAM TO COME DOWN AND CHANGE BANDAGES AND REPLACE HER WOUND VAC.
[2019-10-26] MEDS ORDERED: OXYcodone/APAP 5/325MG TABLET ONE (13:15)
[2019-10-26] MEDS ORDERED: OXYcodone/APAP 5/325MG TABLET PO ONE (13:30)
--- NOTE | 2019-10-26 13:45 | NUR ---
TOLD PT THAT IT COULD BE AN HOUR BEFORE THE WOUND NURSE COMES DOWN TO TAKE A LOOK AT WOUND VAC. PT WAS OK WITH THIS
--- NOTE | 2019-10-26 14:08 | NUR ---
PT RESTING IN HOSPITAL BED. AWAITING WOUND NURSES. NO NEEDS AT THIS TIME
--- NOTE | 2019-10-26 14:35 | NUR ---
WOUND CARE NURSE IN WITH PT
[2019-10-26 15:15] VITALS: BP 103/50
== END 2019-10-26 15:22 | disposition home or self-care (01) ==
LOC: ED 14:36
DX: R60.0 Localized edema (principal); R06.00 Dyspnea, unspecified; R10.11 Right upper quadrant pain; I10 Essential (primary) hypertension; E78.5 Hyperlipidemia, unspecified; Z90.49 Acquired absence of other specified parts of digestive tract
CPT/HCPCS: 36415; 71045; 80053; 85025; 93970; 99284

== ENCOUNTER 2019-10-29 13:29 | Outpatient (CLI) | payer OTHER ==
[~2019-10-29 13:29] MED LIST changes: +FENO48TA17 PO; +SIMV20TA3 PO
== END 2019-10-29 23:59 | disposition home or self-care (01) ==
LOC: WOUND 13:29
PROVIDERS: ATTEND Internal Medicine
DX: T81.31XA Disruption of external operation (surgical) wound, not elsewhere classified, initial encounter (principal); E78.5 Hyperlipidemia, unspecified; E03.9 Hypothyroidism, unspecified; R06.00 Dyspnea, unspecified; I10 Essential (primary) hypertension; Z87.891 Personal history of nicotine dependence; Y83.8 Other surgical procedures as the cause of abnormal reaction of the patient, or of later complication, without mention of misadventure at the time of the procedure; Y92.89 Other specified places as the place of occurrence of the external cause
CPT/HCPCS: 11042; 99215

== ENCOUNTER 2019-10-31 11:02 | Outpatient (CLI) | payer OTHER | END 2019-10-31 23:59 | disposition home or self-care (01) | LOC: WOUND 11:02 | PROVIDERS: ATTEND Internal Medicine | DX: T81.32XD Disruption of internal operation (surgical) wound, not elsewhere classified, subsequent encounter (principal); I10 Essential (primary) hypertension; E78.5 Hyperlipidemia, unspecified; E03.9 Hypothyroidism, unspecified; Z87.891 Personal history of nicotine dependence; Z90.49 Acquired absence of other specified parts of digestive tract; Y83.8 Other surgical procedures as the cause of abnormal reaction of the patient, or of later complication, without mention of misadventure at the time of the procedure | CPT/HCPCS: 97605 ==

== ENCOUNTER 2019-11-02 12:45 | Outpatient (CLI) | payer OTHER ==
[~2019-11-02 12:45] MED LIST changes: +FENO48TA10 PO; -FENO48TA17 PO; +SIMV20TA19 PO; -SIMV20TA3 PO
== END 2019-11-02 23:59 | disposition home or self-care (01) ==
LOC: WOUND 12:45
PROVIDERS: ATTEND Family Medicine
DX: T81.32XD Disruption of internal operation (surgical) wound, not elsewhere classified, subsequent encounter (principal); I10 Essential (primary) hypertension; E78.5 Hyperlipidemia, unspecified; E03.9 Hypothyroidism, unspecified; Z87.891 Personal history of nicotine dependence; Z90.49 Acquired absence of other specified parts of digestive tract; Y83.8 Other surgical procedures as the cause of abnormal reaction of the patient, or of later complication, without mention of misadventure at the time of the procedure
CPT/HCPCS: 97605

== ENCOUNTER 2019-11-05 10:36 | Outpatient (CLI) | payer OTHER | END 2019-11-05 23:59 | disposition home or self-care (01) | LOC: WOUND 10:36 | PROVIDERS: ATTEND Internal Medicine | DX: T81.32XD Disruption of internal operation (surgical) wound, not elsewhere classified, subsequent encounter (principal); I10 Essential (primary) hypertension; E78.5 Hyperlipidemia, unspecified; E03.9 Hypothyroidism, unspecified; Z87.891 Personal history of nicotine dependence; Z90.49 Acquired absence of other specified parts of digestive tract; Y83.8 Other surgical procedures as the cause of abnormal reaction of the patient, or of later complication, without mention of misadventure at the time of the procedure | CPT/HCPCS: 97597 ==

== ENCOUNTER → 2019-11-07 | Outpatient (CLI) | payer OTHER | END | disposition home or self-care (01) | LOC: WOUND 14:12 | PROVIDERS: ATTEND Internal Medicine | DX: T81.32XD Disruption of internal operation (surgical) wound, not elsewhere classified, subsequent encounter (principal); I10 Essential (primary) hypertension; E78.5 Hyperlipidemia, unspecified; E03.9 Hypothyroidism, unspecified; Z87.891 Personal history of nicotine dependence; Z90.49 Acquired absence of other specified parts of digestive tract; Y83.8 Other surgical procedures as the cause of abnormal reaction of the patient, or of later complication, without mention of misadventure at the time of the procedure | CPT/HCPCS: 97605 ==

== ENCOUNTER 2019-11-09 13:14 | Outpatient (CLI) | payer OTHER | END 2019-11-09 23:59 | disposition home or self-care (01) | LOC: WOUND 13:14 | PROVIDERS: ATTEND Family Medicine | DX: T81.32XD Disruption of internal operation (surgical) wound, not elsewhere classified, subsequent encounter (principal); I10 Essential (primary) hypertension; E78.5 Hyperlipidemia, unspecified; E03.9 Hypothyroidism, unspecified; Z87.891 Personal history of nicotine dependence; Z90.49 Acquired absence of other specified parts of digestive tract; Y83.8 Other surgical procedures as the cause of abnormal reaction of the patient, or of later complication, without mention of misadventure at the time of the procedure | CPT/HCPCS: 97605 ==

== ENCOUNTER → 2019-11-12 | Outpatient (CLI) | payer OTHER | END | disposition home or self-care (01) | LOC: WOUND 13:06 | PROVIDERS: ATTEND Internal Medicine | DX: T81.32XD Disruption of internal operation (surgical) wound, not elsewhere classified, subsequent encounter (principal); I10 Essential (primary) hypertension; E78.5 Hyperlipidemia, unspecified; E03.9 Hypothyroidism, unspecified; Z87.891 Personal history of nicotine dependence; Z90.49 Acquired absence of other specified parts of digestive tract; Y83.8 Other surgical procedures as the cause of abnormal reaction of the patient, or of later complication, without mention of misadventure at the time of the procedure | CPT/HCPCS: 97597 ==

== ENCOUNTER → 2019-11-26 | Outpatient (CLI) | payer OTHER | END | disposition home or self-care (01) | LOC: WOUND 10:57 | PROVIDERS: ATTEND Internal Medicine | DX: T81.32XD Disruption of internal operation (surgical) wound, not elsewhere classified, subsequent encounter (principal); I10 Essential (primary) hypertension; E78.5 Hyperlipidemia, unspecified; E03.9 Hypothyroidism, unspecified; R60.0 Localized edema; Z87.891 Personal history of nicotine dependence; Z90.49 Acquired absence of other specified parts of digestive tract; Y83.8 Other surgical procedures as the cause of abnormal reaction of the patient, or of later complication, without mention of misadventure at the time of the procedure | CPT/HCPCS: 99214 ==

== ENCOUNTER 2019-12-04 05:25 | Day surgery (SDC) | payer OTHER ==
[~2019-12-04] VITALS: Ht 167.6 cm; Wt 83.2 kg
[2019-12-04] MEDS ORDERED: LACTATED RINGERS 1,000 ML IV SCH (05:55)
[2019-12-04] MEDS ORDERED: LIDOCAINE-MPF 1%, 2ML INFIL ONE (06:00)
[2019-12-04] MEDS ORDERED: TIOT18CA INH (06:01)
[2019-12-04 06:18] VITALS: BP 136/75
[2019-12-04] MEDS ORDERED: MIDAZOLAM 1 MG/ML, 2ML ONE (06:49)
[2019-12-04] MEDS ORDERED: FENTANYL PF 250 MCG/5ML ONE (06:49)
[2019-12-04] MEDS ORDERED: ROCURONIUM 10MG/ML,5ML ONE (06:52)
[2019-12-04] MEDS ORDERED: DEXAMETHASONE 4 MG/ML, 1ML ONE (06:52)
[2019-12-04] MEDS ORDERED: NEOSTIGMINE 1 MG/ML, 10ML ONE (06:52)
[2019-12-04] MEDS ORDERED: CEFAZOLIN 1,000 MG ONE (06:52)
[2019-12-04] MEDS ORDERED: ONDANSETRON 2MG/ML, 2ML ONE (06:52)
[2019-12-04] MEDS ORDERED: GLYCOPYRROLATE 0.2MG/1ML, 5ML ONE (06:52)
[2019-12-04] MEDS ORDERED: PROPOFOL 10 MG/ML, 20ML ONE (06:52)
[2019-12-04] MEDS ORDERED: HYDROmorphone 2 MG/ML, 1ML IVPush PRN (07:30)
[2019-12-04] MEDS ORDERED: OXYcodone 5 MG/5 ML ORAL.SOL UDC PO PRN (07:30)
[2019-12-04] MEDS ORDERED: MEPERIDINE/PF 25MG/ML,1ML IVPush PRN (07:30)
[2019-12-04] MEDS ORDERED: PROMETHAZINE 25 MG/ML, 1ML IV PRN (07:30)
[2019-12-04] MEDS ORDERED: HALOPERIDOL 5 MG/ML IV PRN (07:30)
[2019-12-04] MEDS ORDERED: FENTANYL PF 100 MCG/2ML IV PRN (07:30)
[2019-12-04] MEDS ORDERED: hydrALAzine 20 MG/ML, 1ML IV PRN (07:30)
[2019-12-04] MEDS ORDERED: MORPHINE SULFATE 4 MG/ML, 1ML IVPush PRN (07:30)
[2019-12-04] MEDS ORDERED: LABETALOL 5MG/ML, 20ML IV PRN (07:30)
== END 2019-12-04 09:50 | disposition home or self-care (01) ==
LOC: OUT 05:25
PROVIDERS: ATTEND Internal Medicine Geriatric Medicine
DX: K80.50 Calculus of bile duct without cholangitis or cholecystitis without obstruction (principal); K91.89 Other postprocedural complications and disorders of digestive system; K21.9 Gastro-esophageal reflux disease without esophagitis; E78.5 Hyperlipidemia, unspecified; E03.9 Hypothyroidism, unspecified; J43.9 Emphysema, unspecified; Z79.890 Hormone replacement therapy; Z79.899 Other long term (current) drug therapy; Z91.048 Other nonmedicinal substance allergy status; Z99.81 Dependence on supplemental oxygen; Z98.51 Tubal ligation status; Z98.890 Other specified postprocedural states
CPT/HCPCS: 43264; 43275; 74328; C1769; J0690; J1100; J2250; J2405; J2704; J2710; J3010; J7120

== ENCOUNTER 2020-02-26 17:32 | Emergency (ER) | payer OTHER ==
[~2020-02-26] VITALS: Ht 165.1 cm; Wt 89.4 kg
--- NOTE | 2020-02-26 17:58 | NUR ---
PT REPORTS THAT SHE TOOK A DOSE OF THE NEW MEDICATION SHE PICKED UP AT THE PHARMACY TODAY BEFORE SHE CAME IN. STATES IT IS A LISINOPRIL/HCTZ COMBO, THE SAME MEDICATION AND DOSE SHE WAS ON DURING A PAST STAY. MEDICATION WAS DISCOUNTINUED AT ONE POINT, HER PCP RESTARTED IT TODAY. DENIES ANY OTHER NEEDS. ATTACHED TO MONITORS, DRESSED IN GOWN, PROVIDED WITH WARM BLANKETS. CALL LIGHT IN REACH.
[2020-02-26 18:06] VITALS: BP 137/74
[2020-02-26] MEDS ORDERED: DIPHENHYDRAMINE 50 MG/ML, 1ML ONE (18:45)
[2020-02-26] MEDS ORDERED: KETOROLAC 30 MG/1 ML ONE (18:46)
[2020-02-26] MEDS ORDERED: METOCLOPRAMIDE 5 MG/ML, 2ML ONE (18:46)
[2020-02-26 18:49] LABS: BASOPHILS # (AUTO) 0.01 x10^3/uL (0-0.1); BASOPHILS % (AUTO) 0 % (0-1); EOSINOPHILS # (AUTO) 0.25 x10^3/uL (0-0.4); EOSINOPHILS % (AUTO) 2 % (1-7); LYMPHOCYTES # (AUTO) 1.22 x10^3/uL (1-3.4); LYMPHOCYTES % (AUTO) 11 % (22-44); MD NO; MEAN CORPUSCULAR HEMOGLOBIN 23.6 pg (27.0-34.8); MEAN CORPUSCULAR HGB CONC 31.1 g/dL (32.4-35.8); MEAN CORPUSCULAR VOLUME 75.9 fL (80-100); MEAN PLATELET VOLUME 9.6 fL (7.4-10.4); MONOCYTES % (AUTO) 2 % (2-9); NEUTROPHILS # (AUTO) 9.07 x10^3/uL (1.8-6.8); NEUTROPHILS % (AUTO) 84 % (42-75); PLATELET COUNT 393 x10^3/uL (130-400); RED BLOOD COUNT 5.21 x10^6/uL (3.82-5.3); RED CELL DISTRIBUTION WIDTH 21.5 % (9.6-15.2)
[2020-02-26 18:53] LABS: ALBUMIN 3.5 g/dL (3.4-5.0); ANION GAP 3 mmol/L (5-15); CALCIUM 8.7 mg/dL (8.5-10.1); CHLORIDE 105 mmol/L (98-107); CREATININE 0.73 mg/dL (0.55-1.02)
[2020-02-26] MEDS ORDERED: METOCLOPRAMIDE 5 MG/ML, 2ML IVPush ONE (19:00)
[2020-02-26] MEDS ORDERED: DIPHENHYDRAMINE 50 MG/ML, 1ML IVPush ONE (19:00)
[2020-02-26] MEDS ORDERED: KETOROLAC 30 MG/1 ML IVPush ONE (19:00)
[2020-02-26] MEDS ORDERED: SODIUM CHLORIDE 0.9% 1,000ML IVBOLUS ONE (19:00)
[2020-02-26] MEDS ORDERED: SODIUM CHLORIDE FLUSH 10ML SYR IVF ONE (19:30)
== END 2020-02-26 20:46 | disposition home or self-care (01) ==
LOC: ED 18:40
DX: R51 Headache (principal); M54.2 Cervicalgia; I10 Essential (primary) hypertension; R94.31 Abnormal electrocardiogram [ECG] [EKG]; Z87.891 Personal history of nicotine dependence
CPT/HCPCS: 36415; 70450; 80048; 82040; 85025; 93005; 96374; 96375; 99285; J1200; J1885; J2765; J7030

== ENCOUNTER → 2020-06-23 | Outpatient (CLI) | payer OTHER | END | disposition home or self-care (01) | LOC: CFH 10:00 | PROVIDERS: ATTEND Physician Assistant Surgical | DX: G93.0 Cerebral cysts (principal) | CPT/HCPCS: 70450 ==

== ENCOUNTER → 2020-08-01 | Outpatient (CLI) | payer OTHER | END | disposition home or self-care (01) | LOC: CFH 10:15 | PROVIDERS: ATTEND Neurological Surgery | DX: G93.0 Cerebral cysts (principal); R51.0 Headache with orthostatic component, not elsewhere classified | CPT/HCPCS: 70450 ==